=== PATIENT | female | born 1980 | race Caucasian/White ===

== ENCOUNTER 2021-11-03 07:57 | Emergency (ER) | payer BC, SELFPAY ==
[2021-11-03 08:05] VITALS: BP 139/90; PULSE 92; TEMP 36.1; O2SAT 97; BMI 23.9
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
--- NOTE | 2021-11-03 08:09 | CRLHL7_ITS ---
For Patients: As a result of the Cures Act, medical imaging exams and procedure reports are released immediately into your electronic medical record. You may view this report before your referring provider. If you have questions, please contact your health care provider. Indication: Injury and pain Technique: Left ankle 3 views. Comparison: None Findings: Bones: Alignment is normal. No fractures or bone lesions. Joint spaces: Unremarkable. Soft tissues: Unremarkable. Impression: No sign of acute injury. Dictated by Michael Cortez MD @ 11/03/2021 8:50:40 AM (Electronically Signed)
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
--- NOTE | 2021-11-03 08:15 | ED.NURSE ---
Trauma Team Activation called upon arrival. Dr. Chow in room immediately.
[2021-11-03 08:40] VITALS: BP 130/3; PULSE 78; RESP 16; O2SAT 97
--- NOTE | 2021-11-03 08:40 | ED.NURSE ---
Patient back from radiology. Is up to restroom ambulatory with before contract writer could enter room with patient. She is steady on her feet, denies dizziness. VSS. Pain remains to posterior head. Head to toe assessment completed, no knew injuries identified.
[2021-11-03 08:45] VITALS: BP 130/79; PULSE 78; RESP 16; O2SAT 97
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
[2021-11-03 09:30] VITALS: BP 126/78; PULSE 77; RESP 16; O2SAT 99
--- NOTE | 2021-11-03 09:30 | ED.NURSE ---
Extensive wound care provided to posterior scalp. Cement Mason utilized shampoo caps, sterile water/hibiclens scrub in attempts to remove coagulated blood from hair and around hematoma. Unable to identify any further areas of injury aside from hematoma to posterior scalp, left parietal area. Slight oozing noted from hematoma, with pressure, additional blood expressed that seems to have pooled under the skin. Patient tolerating all cares well.
--- NOTE | 2021-11-03 10:00 | ED.NURSE ---
Pressure wrap to patient's head. She will leave this in place x24 hours. Has clinic appointment at [facility] tomorrow 1100 for follow up. Patient understands to ice multiple times today.
== END 2021-11-03 10:05 | disposition home or self-care (01) ==
PROVIDERS: Emergency Provider Family Medicine; PCP Family Medicine
DX: S00.03XA Contusion of scalp, initial encounter (principal); V89.0XXA Person injured in unspecified motor-vehicle accident, nontraffic, initial encounter; M25.572 Pain in left ankle and joints of left foot
CPT/HCPCS: 70450; 70486; 73610; 99284; 99285; 99291